=== PATIENT | female | born 1965 | race Caucasian/White ===

== ENCOUNTER 2016-08-09 10:28 | Emergency (ER) | payer BC ==
[2016-08-09 10:44] VITALS: BP 139/87
--- NOTE | 2016-08-09 10:53 | UC ---
Complaint Female HPI - HPI Summary HPI Summary: complaint of increase in frequency and urgency of urination that starts last night last night started to have right flank pain- constant aching pain cannot express much urine denies pain with urination denies fever and abdominal pain LMP 06/20/16 has annual exam on monday [employer] - History Of Current Complaint Chief Complaint: UCBackPain Stated Complaint: BACK PAIN/URINARY COMPLAINT Time Seen by Provider: 08/09/16 10:33 Hx Obtained From: Patient Hx Last Menstrual Period: 06/20/16 - Allergies/Home Medications Allergies/Adverse Reactions: Allergies Allergy/AdvReac Type Severity Reaction Status Date / Time No Known Allergies Allergy Verified 08/09/16 10:33 Home Medications: Home Medications B-Complex W/Biotin & Folic Aci [Multi-B Complex] 1 cap PO DAILY 08/09/16 [ History Confirmed 08/09/16] Famciclovir [Famvir] 250 mg PO BID 08/09/16 [History Confirmed 08/09/16] Fexofenadine (NF) [Nicci 180 (NF)] 180 mg PO DAILY 08/09/16 [History Confirmed 08/09/16] Fluticasone NASAL SPRAY 50MCG* [Flonase NASAL SPRAY 50MCG*] 2 spray BOTH NARES DAILY 08/09/16 [History Confirmed 08/09/16] Probiotic Product [Probiotic Daily] 1 cap PO DAILY 08/09/16 [History Confirmed 08/09/16] Spironolactone (NF) [Spironolactone 50 MG (NF)] 100 mg PO DAILY 08/09/16 [ History Confirmed 08/09/16] lamoTRIgine TAB(*) [Lamictal TAB(*)] 150 mg PO DAILY 08/09/16 [History Confirmed 08/09/16] PMH/Surg Hx/FS Hx/Imm Hx Previously Healthy: Yes - Surgical History Surgical History: Yes Surgery Procedure, Year, and Place: BREAST BX. BREAST AUGMENTAION - Family History Known Family History: Positive: Hypertension - father, Diabetes - father Negative: Cardiac Disease - Social History Occupation: Employed Full-time Lives: With Family Alcohol Use: Occasionally Substance Use Type: None Smoking Status (MU): Never Smoked Tobacco Review of Systems Constitutional: Negative Skin: Negative Eyes: Negative ENT: Negative Respiratory: Negative Cardiovascular: Negative Gastrointestinal: Negative Genitourinary: Frequency, Urgency Motor: Negative Neurovascular: Negative Musculoskeletal: Negative Neurological: Negative Psychological: Negative All Other Systems Reviewed And Are Negative: Yes Physical Exam Triage Information Reviewed: Yes Appearance: No Pain Distress, Well-Nourished Vital Signs: Initial Vital Signs Temp 98 F 08/09/16 10:38 Pulse 83 08/09/16 10:38 Resp 18 08/09/16 10:38 BP 139/87 08/09/16 10:38 Pulse Ox 100 08/09/16 10:38 Vital Signs Reviewed: Yes Eyes: Positive: Conjunctiva Clear ENT: Positive: Pharynx normal, TMs normal Neck: Positive: No Lymphadenopathy Respiratory: Positive: Lungs clear, Normal breath sounds, No respiratory distress, No accessory muscle use Cardiovascular: Positive: RRR, No Murmur, Pulses Normal Abdomen Description: Positive: Nontender, No Organomegaly, Soft. Negative: CVA Tenderness (R), CVA Tenderness (L), Distended, Guarding Bowel Sounds: Positive: Present Musculoskeletal: Positive: No Edema Neurological: Positive: Alert Psychological Exam: Normal Skin Exam: Normal Complaint Female Dx - Course Course Of Treatment: exam comppeted. will treat d/t symptoms- has followup in 3 daysa with PCP - Differential Dx/Diagnosis Differential Diagnosis/HQI/PQRI: Ureteral Stone, Urinary Tract Infection Provider Diagnoses: UTI Discharge - Discharge Plan Condition: Stable Disposition: HOME Prescriptions: Phenazopyridine TAB* [Pyridium 100 mg TAB*] 100 mg PO TID #6 tab Sulfamethox/Trimethoprim DS* [Bactrim DS 800/160 TAB*] 1 tab PO BID #9 tab Patient Education Materials: Urinary Tract Infection in Women (ED) Referrals: Natividad Benton MD [Medical Doctor] - Additional Instructions: Please take antibiotic as directed Increase fluids and rest Take acetaminophen or ibuprofen for fever or pain Please review your discharge instructions. If your symptoms do not improve please call your primary care provider or return to urgent care. Your blood pressure is pre-hypertensive reading. Please contact your primary care provider within 1 day -4 weeks for further evaluation.
== END 2016-08-09 11:05 | disposition home or self-care (01) ==
LOC: UCCORT 10:28
DX: N39.0 Urinary tract infection, site not specified (principal)
CPT/HCPCS: 81003; 84702; 87077; 87086; 87186; 99202; 99282; G0463

== ENCOUNTER 2016-10-19 09:01 | Emergency (ER) | payer BC ==
[2016-10-19 09:30] VITALS: BP 137/95
[2016-10-19] MEDS ORDERED: Tetan/Diph/Pertus SYR(Tdap)* 0.5 ML SYR(BOOSTRIX) use SYR IM ONE (09:36)
--- NOTE | 2016-10-19 09:40 | UC ---
Hand/Wrist HPI - HPI Summary HPI Summary: 51 yo female with right thumb injury 2 days ago crushes between two boats she is right handed unsure of last tet - History Of Current Complaint Chief Complaint: UCUpperExtremity Stated Complaint: RIGHT THUMB WOUND Time Seen by Provider: 10/19/16 09:31 Hx Obtained From: Patient Hx Last Menstrual Period: 06/24/14 Onset/Duration: Sudden Onset, Lasting Days Severity Initially: Moderate Severity Currently: Mild Pain Intensity: 4 Pain Scale Used: 0-10 Numeric Character Of Pain: Aching, Throbbing Aggravating Factor(s): Movement Alleviating: Rest Associated Signs And Symptoms: Positive: Swelling, Bruising, Other - lac - Allergies/Home Medications Allergies/Adverse Reactions: Allergies Allergy/AdvReac Type Severity Reaction Status Date / Time No Known Allergies Allergy Verified 10/19/16 09:08 PMH/Surg Hx/FS Hx/Imm Hx Previously Healthy: Yes - Surgical History Surgical History: Yes Surgery Procedure, Year, and Place: BREAST BX. BREAST AUGMENTAION - Family History Known Family History: Positive: Hypertension - father, Diabetes - father Negative: Cardiac Disease - Social History Alcohol Use: Occasionally Substance Use Type: None Smoking Status (MU): Never Smoked Tobacco - Immunization History Most Recent Influenza Vaccination: unknown Review of Systems Constitutional: Negative Skin: Bruising Eyes: Negative ENT: Negative Respiratory: Negative Cardiovascular: Negative Gastrointestinal: Negative Genitourinary: Negative Motor: Negative Neurovascular: Negative Musculoskeletal: Arthralgia Neurological: Negative Psychological: Negative All Other Systems Reviewed And Are Negative: Yes Physical Exam Triage Information Reviewed: Yes Appearance: Well-Appearing, No Pain Distress, Well-Nourished Vital Signs: Initial Vital Signs Temp 98.9 F 10/19/16 09:10 Pulse 84 10/19/16 09:10 Resp 16 10/19/16 09:10 BP 137/95 10/19/16 09:10 Pulse Ox 99 10/19/16 09:10 Eyes: Positive: Conjunctiva Clear ENT: Positive: Hearing grossly normal. Negative: Nasal congestion, Nasal drainage, Trismus, Muffled/hoarse voice Neck: Positive: Supple, Nontender Respiratory: Positive: Lungs clear, Normal breath sounds, No respiratory distress Cardiovascular: Positive: RRR, No Murmur Musculoskeletal: Positive: Other: - see image Neurological Exam: Normal Skin Exam: Normal Hand/Wrist Course/Dx - Differential Dx/Diagnosis Provider Diagnoses: right thumb contusion. right thumb laceration-not sutured Discharge - Discharge Plan Condition: Stable Disposition: HOME Prescriptions: Cephalexin CAP* [Keflex CAP*] 500 mg PO QID #12 cap Patient Education Materials: Contusion in Adults (ED), Laceration Without Closure (ED) Referrals: Natividad Benton MD [Primary Care Provider] - 1 Week (you need your BP rechecked as well as your thumb) Additional Instructions: gently clean thumb twice daily with soap and water apply thin film of antibiotic oint dressing until sealed splint as needed for comfort Images Hands: 1 - 1 cm lac,1 mm wide, 1 mm deep 2 - swollen/ecchymotic
--- NOTE | 2016-10-19 10:01 | RAD ---
HISTORY: Crush injury, laceration, first digit of right hand COMPARISONS: None VIEWS: 3, Frontal, lateral, and oblique views of the first digit of the right hand FINDINGS: BONE DENSITY: Normal. BONES: There is no displaced fracture. 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 SOFT TISSUES: Unremarkable. OTHER FINDINGS: None. IMPRESSION: NO ACUTE OSSEOUS INJURY. IF SYMPTOMS PERSIST, RECOMMEND REPEAT IMAGING.
== END 2016-10-19 10:44 | disposition home or self-care (01) ==
LOC: UCCORT 09:01
DX: S60.011A Contusion of right thumb without damage to nail, initial encounter (principal); S61.011A Laceration without foreign body of right thumb without damage to nail, initial encounter; W23.0XXA Caught, crushed, jammed, or pinched between moving objects, initial encounter; Y93.9 Activity, unspecified; Y92.9 Unspecified place or not applicable; Z23 Encounter for immunization
CPT/HCPCS: 90471; 90715; 99213; G0463